=== PATIENT | male | born 1960 | race Native Hawaiian/Other Pacific Islander ===

== ENCOUNTER 2020-09-11 14:57 | Outpatient (CLI) | payer BC, OTHER | END 2020-09-11 23:01 | disposition home or self-care (01) | LOC: INF 14:57 | PROVIDERS: ATTEND Internal Medicine | DX: Z23 Encounter for immunization (principal) | CPT/HCPCS: 96372 ==

== ENCOUNTER 2020-10-03 13:43 | Outpatient (CLI) | payer BC, OTHER | END 2020-10-03 19:55 | disposition home or self-care (01) | LOC: INF 13:43 | PROVIDERS: ATTEND Internal Medicine | DX: Z23 Encounter for immunization (principal) | CPT/HCPCS: 96372 ==